=== PATIENT | male | born 1930 | race Caucasian/White ===

== ENCOUNTER 2018-10-12 18:50 | Inpatient (IN) ==
[2018-10-12 20:06] LABS: BASO# 0.02 X1000 (0.0-0.2); BASO% 0.2 % (0.0-0.8); EOS# 0.09 X1000 (0.0-0.7); HEMATOCRIT 38.8 % (42.0-52.0); HEMOGLOBIN 13.9 g/dL (14.0-18.0); IMM GRAN# 0.02 X1000 (0.0-0.04); IMM GRAN% 0.2 % (0.0-0.5); LYMPH# 1.61 X1000 (1.2-3.4); LYMPH% 18.4 % (20.5-51.1); MCH 32.3 PG (27-31); MCHC 35.8 g/dL (33-37); MONO# 0.97 X1000 (0.11-0.59); MONO% 11.1 % (1.7-9.3); MPV 9.4 FL (7.4-10.4); NEUT# 6.02 X1000 (1.4-6.5); NEUT% 69.1 % (42.2-75.2); PLT 305 X1000 (130-400); RBC 4.31 XMIL (4.7-6.1); RDW 12.5 % (11.5-14.5); WBC 8.73 X1000 (4.8-10.8)
--- NOTE | 2018-10-12 20:23 | Diag Imaging Result Doc PS360 ---
EXAM: CHEST-PORTABLE - 10/12/2018 HISTORY: "weakness" TECHNIQUE: Portable chest COMPARISON: 09/26/2018 chest two views FINDINGS: Heart size appears normal. There is mild tortuosity of the thoracic aorta. There is mild elevation of the right hemidiaphragm. The lungs appear clear. There is no pleural effusion or pneumothorax identified. IMPRESSION: Nonspecific mild elevation of right hemidiaphragm. No other evidence of acute disease. Electronically signed by Kale Zhao 10/12/2018 8:20 PM
[2018-10-12 21:05] LABS: ESTIMATED GFR > 60
[2018-10-12 21:10] LABS: AGAP 15; ALB/GLOB RATIO 1.4; ALBUMIN 3.9 g/dL (3.5-5.0); ALKALINE PHOSPHATASE 71 U/L (32-122); BUN 14 mg/dL (8-22); CHLORIDE 85 mmol/L (98-107); COSMO 254; CREATININE 0.9 mg/dL (0.7-1.2); GLUCOSE 95 mg/dL (70-104); GOT 22 U/L (10-34); GPT 11 U/L (10-44); POTASSIUM 3.2 mmol/L (3.5-5.1); SODIUM 126 mmol/L (136-145); TCO2 26 mmol/L (25-35); TOTAL BILIRUBIN 0.42 mg/dL (0.20-1.00); TOTAL PROTEIN 6.6 g/dL (6.3-8.3)
[2018-10-12] MEDS ORDERED: KLOR-CON PO ONE (21:31)
[2018-10-12] MEDS ORDERED: NS 1,000 ML IV ONE (22:31)
[2018-10-12 22:41] LABS: URINE SOURCE CLEAN CATCH
[2018-10-12 22:47] LABS: BILIRUBIN URINE NEGATIVE (NEGATIVE); BLOOD URINE NEGATIVE (NEGATIVE); COLOR YELLOW; GLUCOSE URINE NEGATIVE (NEGATIVE); KETONE URINE NEGATIVE (NEGATIVE); LEUKOCYTES URINE MODERATE (NEGATIVE); NITRITE URINE NEGATIVE (NEGATIVE); PH URINE 6.5; PROTEIN URINE TRACE mg/dL (NEGATIVE); SP GRAVITY URINE 1.013; TURBIDITY URINE CLEAR (CLEAR); UROBILINOGEN URINE 3 mg/dL (NORMAL)
[2018-10-12 22:49] LABS: UR EPITHELIAL CELLS <10 /HPF (<10); URINE BACTERIA 4+ /HPF; URINE RBC <10 /HPF (<10); URINE WBC TNTC /HPF (<10)
[2018-10-12 22:58] LABS: UR AMPHETAMINES QUAL NONE DETECTED (NONE DETECT); UR BARBITUATES QUAL NONE DETECTED (NONE DETECT); UR BENZODIAZEPIN QUAL NONE DETECTED (NONE DETECT); UR CANNABINOIDS QUAL NONE DETECTED (NONE DETECT); UR COCAINE QUAL NONE DETECTED (NONE DETECT); UR METHADONE QUAL NONE DETECTED (NONE DETECT); UR OPIATES QUAL NONE DETECTED (NONE DETECT); UR OXYCODONE QUAL NONE DETECTED (NONE DETECT); UR PCP QUAL NONE DETECTED (NONE DETECT)
[2018-10-12] MEDS ORDERED: ROCEPHIN 1 GM in NS 50 ML IV ONE (23:01)
--- NOTE | 2018-10-12 23:10 | PROVIDER DOCUMENTATION ---
This chart was entered by Jessica Samuels Scribe, acting as scribe for Awilda Chavez MD. HPI-General Adult - General Chief Complaint: Weakness Stated Complaint: WEAK, FEEL'S FAINT Time Seen by Provider: 10/12/18 19:12 Source: patient Allergies/Adverse Reactions: Patient Allergies Allergy/AdvReac Type Severity Reaction Status Date / Time No Known Allergies Allergy Verified 09/25/18 04:41 Home Medications: Home Medication List Medication Instructions Recorded Confirmed Last Taken Type Carvedilol Phosphate [Coreg Cr] 40 mg PO DAILY 03/30/12 09/25/18 05/09/15 History Ezetimibe [Zetia] 10 mg PO DAILY 03/30/12 05/10/15 05/09/15 History Fosinopril Sodium [Monopril] 40 mg PO BID 03/30/12 09/25/18 05/09/15 History Meclizine [Antivert] 12.5 mg PO 4XDAY #0 tablet 03/30/12 05/10/15 05/09/15 Rx Chlorpromazine [Thorazine] 25 mg PO TID PRN PRN #30 tablet 09/27/14 05/10/15 05/09/15 Rx Aspirin [Aspirin EC] 81 mg PO QAM 05/10/15 09/25/18 05/09/15 History Hydrochlorothiazide 1 tab PO DAILY 09/25/18 10/12/18 Unknown History Indapamide 1 tab PO DAILY 09/25/18 09/25/18 Unknown History Metformin E.r. [Glucophage Xr] 2 tab PO BID 09/25/18 09/26/18 Unknown History Omeprazole 1 cap PO DAILY 09/25/18 09/25/18 Unknown History Pioglitazone HCl 1 tab PO QAM 09/25/18 09/25/18 Unknown History Pravastatin Sodium 1 tab PO QPM 09/25/18 09/25/18 Unknown History Tamsulosin HCl [Flomax] 1 cap PO DAILY 09/25/18 09/25/18 Unknown History Amlodipine [Norvasc] 5 mg PO BID 09/26/18 09/26/18 Unknown History Atorvastatin Calcium [Lipitor] 80 mg PO QHS 09/26/18 09/26/18 Unknown History Furosemide [Lasix] 40 mg PO BID 09/26/18 09/26/18 Unknown History Glipizide [Glipizide Xl] 20 mg PO QAM 09/26/18 09/26/18 Unknown History Isosorbide Mononitrate [Isosorbide 60 mg PO DAILY 09/26/18 09/26/18 Unknown History Mononitrate ER] Methocarbamol [Robaxin] 500 mg PO Q6H PRN PRN 09/26/18 09/26/18 Unknown History Ondansetron HCl [Zofran] 4 mg PO Q8H PRN PRN 09/26/18 09/26/18 Unknown History Pantoprazole Sodium [Protonix] 40 mg PO QHS 09/26/18 09/26/18 Unknown History Pregabalin [Lyrica] 150 mg PO BID 09/26/18 09/26/18 Unknown History Trazodone [Desyrel] 50 mg PO QHS 09/26/18 09/26/18 Unknown History - History of Present Illness -Gen Adult Nature of Presenting Problems: 88yom presents to ED cc generalized weakness, especially with walking, that started this evening. Pt is a poor historian but does report he lives alone but does have a maid that cleans for him and daughters who help with shopping, etc. Pt denies N/V/D/F. Pt has hx of HTN, DM and seizure. Pt is non-toxic in appearance. Location of Pain/Injury: reports: generalized Pain Radiation: reports: no radiation Quality of Pain: reports: aching Severity: reports: mild Onset/Duration: reports: this evening Timing: reports: still present Context/Activities at Onset: reports: light activity Modifying Factors: worse with: movement Associated Symptoms: reports: weakness, trouble walking. denies: diarrhea, fever/chills, nausea, vomiting Review of Systems - Adult - REVIEW OF SYSTEMS - ADULT Constitutional: reports: see HPIbc. denies: chills, fever Eyes: reports: no symptoms reported Ears, Nose, Mouth & Throat: reports: no symptoms reported Cardiovascular: reports: no symptoms reported Respiratory: reports: no symptoms reported Gastrointestinal: reports: see HPI. denies: diarrhea, nausea, vomiting Genitourinary: reports: no symptoms reported Musculoskeletal: reports: no symptoms reported Integumentary: reports: no symptoms reported Neurological: reports: no symptoms reported Psychiatric: reports: no symptoms reported Endocrine: reports: no symptoms reported Hematologic/Lymphatic: reports: no symptoms reported Allergic/Immunologic: reports: no symptoms reported All Other Systems: Reviewed and Negative Past History - Adult - PAST MEDICAL HISTORY-ADULT Review of Records: reports: Nursing Assessment Review, Medications Reviewed, Social history reviewed & non-contributory. Major Childhood Illnesses: reports: denies history Cardiovascular: reports: denies history Respiratory: reports: denies history Gastrointestinal: reports: denies history Obstetrical/Gynecological: reports: denies history Genitourinary: reports: denies history Musculoskeletal: reports: denies history Neurological: reports: denies history Endocrine/Immune: reports: denies history Other Conditions: reports: denies history - IMMUNIZATION STATUS Childhood Immunizations: See Nurse Assessment Flu Vaccine: See Nurse Assessment - FAMILY HISTORY Family History: reviewed, not pertinent - SOCIAL HISTORY Smoking: denies Physical Exam-General - PHYSICAL EXAM-ADULT Initial Vital Signs Reviewed: Yes - CONSTITUTIONAL General Appearance: appears well, alert, no apparent distress. negative: anxious, combative - EYES Eyes: PERRL/EOMI, pink conjunctivae. negative: meningismus, photophobia - HEAD, EARS, NOSE, MOUTH & THROAT HENMT: moist mucous membranes, hearing deficit. negative: angioedema - NECK Neck: non-tender, full range of motion, supple, normal inspection. negative: Brudzinski's sign, carotid bruit, C-spine tenderness - RESPIRATORY Respiratory: chest non-tender, lungs clear, normal breath sounds, no pleuratic chest pain, no respiratory distress, no accessory muscle use. negative: crackles, rales, rhonchi, stridor, wheezing - CARDIOVASCULAR Cardiovascular: normal peripheral pulses, regular rate, rhythm, no edema, no gallop, no JVD, no murmur. negative: bradycardia, tachycardia - GASTROINTESTINAL (ABDOMEN) Abdominal Exam: normal bowel sounds, non tender, soft. negative: rigid, rebound, tenderness - LYMPHATIC Lymphatic: no adenopathy. negative: striations - MUSCULOSKELETAL Back Exam: normal inspection, no CVA tenderness, no vertebral tenderness. negative: swelling Extremity: normal range of motion, non-tender, normal inspection, no pedal edema , no calf tenderness, normal capillary refill. negative: deformity, erythema - SKIN Integumentary: normal color, normal turgor, warm/dry. negative: diaphoresis, erythema, jaundice - PSYCHIATRIC Psych/Mental Status: normal mood/affect. negative: anxious, disheveled Progress - PLAN OF CARE/RESULTS Progress/Plan/Lab Results: Vital Signs - 8 hr 10/12/18 18:55 Temperature 98.1 F Pulse Rate 97 H Respiratory Rate 18 Blood Pressure 126/79 O2 Sat by Pulse Oximetry 98 Laboratory Results - last 24 hr 10/12/18 10/12/18 19:01 19:20 WBC 8.73 RBC 4.31 L Hgb 13.9 L Hct 38.8 L MCV 90.0 MCH 32.3 H MCHC 35.8 RDW Std Deviation 12.5 Plt Count 305 MPV 9.4 Immature Gran % (Auto) 0.2 Neut % (Auto) 69.1 Lymph % (Auto) 18.4 L [place] % (Auto) 11.1 H Eos % (Auto) 1.0 Baso % (Auto) 0.2 Immature Gran # (Auto) 0.02 Neut # (Auto) 6.02 Lymph # (Auto) 1.61 [place] # (Auto) 0.97 H Eos # (Auto) 0.09 Baso # (Auto) 0.02 POC Glucose 108 H Orders Category Date Time Status CHEST-PORTABLE [RAD] Stat Exams 10/12/18 19:53 Taken CBC WITH ELECTRONIC DIFF [HEME] Stat Lab 10/12/18 19:20 Completed COMPREHENSIVE METABOLIC PANEL [CHEM] Stat Lab 10/12/18 19:20 Received FREE T4 Stat Lab 10/12/18 19:20 Received TROPONIN T Stat Lab 10/12/18 19:20 Received TSH Stat Lab 10/12/18 19:20 Received URINALYSIS W/POSS RFLX CULT [URINALYSIS] Stat Lab 10/12/18 19:50 Uncollected URINE DRUG SCREEN Stat Lab 10/12/18 19:50 Uncollected Daughter arrived at ED at 2150 and reports pt was at her house today, celebrating Father's Day, and he seemed fine before returning to his home but maybe just a little bit more tired. Daughter does report pt is scheduled to have an EEG and Chest CT on and thinks it is for his worsening memory. She states that prior to recently he has done very well on his own and just recently her sisters and her have been discussing what the next step is. Patient with UTI and chronic hyponatremia although this is lower than it normally is in the past. Given the daughter's concern about him being a little bit more weak, living alone, having more mental issues, awill admit for UTI and PT eval for possible home health vs inpatient rehab. Spoke to Dr Noble who accepted patient for admission. Further orders to be placed by hospitalist team. Result Diagrams: 10/12/18 19:20 10/12/18 19:20 - EKG 1 Time of EKG reading by physician:: 21:15 EKG Read and Signed by:: Awilda Chavez EKG Interpretation (*Must complete 3 of following elements*): Abnormal (possible left atrial enlargement) Rate: 92 Rhythm: normal sinus QRS: RBB Prior EKG Comparison: unchanged from prior - XRAY 1 XRAY: Bilateral XRAY Study: Chest Impression: See EMR Report (IMPRESSION: Nonspecific mild elevation of right hemidiaphragm. No other evidence of acute disease. Electronically signed by Kale Zhao 10/12/2018 8:20 PM) - CONSULTS/PCP/HOSPITALIST Notification #1 *Consult/PCP/Hospitalist*: Dr Noble Time Discussed: 23:14 Consult Disposition: Admit Departure - Departure Date of Disposition Decision: 10/12/18 Time of Disposition Decision: 23:14 DIAGNOSIS: UTI (urinary tract infection), Weakness, Chronic hyponatremia, Hypokalemia Disposition: ADMITTED INPATIENT 09 Certified Medical Emergency: Emergent Condition: Stable Referrals and Follow-Ups: Abiodun Mccormack Jr, MD [Primary Care Provider] - - Critical Care Note This patient required my direct & personal management of CC.: No Attestation - Physician/ SHARON Attestation Patient care was provided by Advanced Practice Provider:: No The physician spent face to face time with patient:: Yes Advanced Practice Provider documentation review:: Supervising physician onsite and consulted in the evaluation and care of this patient. The physician did have a face to face encounter with the patient. This chart was documented by the indicated scribe, (Jessica Samuels Scribe) and accurately reflects the services I performed and decisions made by me, Awilda Chavez MD, as attested by the provider's signature.
--- NOTE | 2018-10-13 00:56 | HISTORY AND PHYSICAL ---
PRIMARY CARE PHYSICIAN: Dr. Abiodun Mccormack. CHIEF COMPLAINT: Progressive general weakness, UTI. HISTORY OF PRESENT ILLNESS: This is a chronically ill-appearing 88-year-old male, past medical history of diabetes, hypertension, hyperlipidemia, who presented to the emergency department complaining of general weakness. The patient is a poor historian. Daughter is at bedside. She reports that the patient has been complaining of general weakness and fatigue for the last weeks that has been going on and off. Today, she was visiting him and she noted that her father was not feeling good. The patient reports feeling dizzy and feeling weak so he decided to drive to the hospital by himself, not telling anybody about it. Here, upon ER evaluation his labs are pretty unremarkable except sodium of 136 that according to daughter sodium tends to run low on him and also mild hypokalemia. Patient is on furosemide according to the home medication list. Also, the urine exam showed UTI. So, considering general weakness and UTI the patient is being admitted to the hospital for further evaluation and treatment. PAST MEDICAL HISTORY: 1. Diabetes mellitus type 2. 2. Hypertension. 3. Hyperlipidemia. PAST SURGICAL HISTORY: None. Patient reports having had a seizure a month ago and is supposed to have an EEG and Neurology consult in September. ALLERGIES: No known drug allergies. SOCIAL HISTORY: Patient lives alone. The patient usually drinks a shot of bourbon almost every single day. The patient does not smoke. He quit smoking in 1984 and 1997. He used to smoke approximately 1 pack per day since his 20s. He denies using any illicit drugs. REVIEW OF SYSTEMS: Review of systems was reviewed and all symptoms are related to H and P. PHYSICAL EXAMINATION: VITALS: Temperature 98.1 degrees, heart rate 97, respiratory rate 18, blood pressure 136/79, O2 saturation 98% on room air. GENERAL: This is a chronically ill-appearing 88-year-old male lying in bed in no acute distress. HEENT: Head is normocephalic, atraumatic. Mucous membranes dry. Pupils equal, round, reactive to light and accommodation. NECK: No JVD noted. No carotid bruits. No lymphadenopathy. No thyromegaly. CARDIOVASCULAR: S1, S2 heard. No murmurs, gallops, or rubs. Regular rate and rhythm. RESPIRATORY: Clear bilaterally to auscultation. No work of breathing or using accessory muscles. ABDOMEN: Soft. Nontender to palpation. Bowel sounds present. No organomegaly. EXTREMITIES: No clubbing, cyanosis, or edema. Peripheral pulses present in both legs. NEUROLOGICAL: The patient is alert and oriented x3. Moves 4 extremities. LABORATORY DATA: Reviewed and urinalysis shows UTI. ASSESSMENT AND PLAN: 1. Generalized weakness/dizziness/urinary tract infection. That is reason why this patient is going to be admitted to the hospital. Also, he has received in the ER ceftriaxone 1 g so we will continue with that medication until final result of blood cultures, urine culture are available. We will provide IV fluids slowly at 75 mL per hour. We will continue to monitor this patient closely. He may need to go to rehab at the end of his hospitalization. 2. Diabetes mellitus type 2. I prefer to manage this patient with insulin sliding scale Humalog and stop oral antidiabetic agents. Will check HbA1c 3. Hyperlipidemia. We will continue home medications. 4. Hypertension. We will resume some of his blood pressure medications because blood pressure is between 127 and 130s at this time. We will continue to monitor this patient closely. 5. History of seizure. We will order an EEG on this patient and we will monitor this patient closely. Will leave the decision of consulting Neurology to his primary care doctor. Dr. Mccormack will see this patient in the morning. cc: MD Abiodun Irwin Jr, MD MTDD
[2018-10-13] MEDS ORDERED: NS 1,000 ML IV SCH (01:03)
[2018-10-13] MEDS ORDERED: ZOFRAN IV PRN (01:03)
[2018-10-13 01:31] LABS: HEMOGLOBIN A1C 5.3 % (4.8-6.0)
[2018-10-13] MEDS: LOVENOX SUBQ SCH ×2 (02:42→23:16)
[2018-10-13] MEDS: ROCEPHIN 1 GM in NS 50 ML IV SCH ×2 (02:43→23:16)
[2018-10-13 06:39] LABS: BASO# 0.02 X1000 (0.0-0.2); BASO% 0.3 % (0.0-0.8); EOS# 0.04 X1000 (0.0-0.7); EOS% 0.6 % (0.0-10.0); HEMATOCRIT 37.5 % (42.0-52.0); HEMOGLOBIN 13.3 g/dL (14.0-18.0); IMM GRAN# 0.02 X1000 (0.0-0.04); IMM GRAN% 0.3 % (0.0-0.5); LYMPH# 1.54 X1000 (1.2-3.4); LYMPH% 22.7 % (20.5-51.1); MCH 32.4 PG (27-31); MCHC 35.5 g/dL (33-37); MCV 91.2 FL (81-99); MONO% 10.3 % (1.7-9.3); MPV 9.4 FL (7.4-10.4); NEUT# 4.45 X1000 (1.4-6.5); NEUT% 65.8 % (42.2-75.2); PLT 294 X1000 (130-400); RBC 4.11 XMIL (4.7-6.1); RDW 12.6 % (11.5-14.5); WBC 6.77 X1000 (4.8-10.8)
[2018-10-13 07:09] LABS: ESTIMATED GFR > 60
[2018-10-13 07:21] LABS: AGAP 11; BUN 12 mg/dL (8-22); CALCIUM 8.3 mg/dL (8.8-10.2); CHLORIDE 89 mmol/L (98-107); COSMO 253; CREATININE 0.9 mg/dL (0.7-1.2); GLUCOSE 92 mg/dL (70-104); POTASSIUM 3.2 mmol/L (3.5-5.1); SODIUM 126 mmol/L (136-145); TCO2 26 mmol/L (25-35)
[2018-10-13] MEDS: HUMALOG SUBQ SCH ×4 (07:35→23:18)
--- NOTE | 2018-10-13 08:06 | EKG Report ---
Test Performed on : 10/12/2018 7:15:34 PM Test Reason : ED. NO EKG ORDER FOR MUSE Blood Pressure : / mmHG Vent. Rate : 092 BPM Atrial Rate : 092 BPM P-R Int : 222 ms QRS Dur : 146 ms QT Int : 390 ms P-R-T Axes : 040 -62 011 degrees QTc Int : 482 ms Sinus rhythm. with 1st degree AV block. with premature atrial complexes. Possible Left atrial enlargement Left axis deviation Right bundle branch block Abnormal ECG When compared with ECG of 25-SEP-2018 05:13, (Unconfirmed) No significant change was found Unconfirmed Result
[2018-10-13] MEDS: LYRICA PO SCH ×2 (08:25→23:22)
[2018-10-13] MEDS: COREG CR PO SCH (08:25)
[2018-10-13] MEDS: ASPIRIN EC PO SCH (08:25)
[2018-10-13] MEDS: ZETIA PO SCH (08:25)
[2018-10-13] MEDS: FLOMAX PO SCH (08:25)
[2018-10-13] MEDS: NORVASC PO SCH ×2 (08:25→23:15)
[2018-10-13] MEDS: KLOR-CON PO SCH ×2 (08:32→23:14)
[2018-10-13] MEDS: HYDROCHLOROTHIAZIDE PO SCH (08:32)
--- NOTE | 2018-10-13 10:56 | PROGRESS NOTE ---
DATE: 10/13/2018 SUBJECTIVE: The patient came in the hospital with generalized weakness and UTI. He has diabetes, hypertension, and hyperlipidemia, probably also alcoholism though he says he has not had a drink in the last couple of weeks. His sodium and potassium were low and appears to have a UTI. He does have diabetes and hyperlipidemia. He had listed on his home medicines Lipitor and pravastatin, but I believe that we only had him on pravastatin some stopping Lipitor and to continue with the pravastatin. He had several medicines that I was not really familiar with him taking including for his heart including Lasix and Imdur. I will have to check on these, but I do not think that he was on these medications. I asked him if he was seeing another physician, and he said no. If he was on Lasix and on indapamide that could account for his potassium being low at 3.2, and his sodium low at 126. His urine culture is pending. OBJECTIVE: Blood pressure 139/69, respirations 15, pulse 68, and temperature 98 degrees Fahrenheit.HEENT: Normocephalic. EOM's intact. PERRLA. Throat clear. Lungs: Clear to auscultation and percussion without rhonchi, rales, or wheezes. Heart: Regular rate and rhythm without murmurs, gallops, or friction rubs. Abdomen: Soft. Active bowel sounds. No organomegaly or tenderness. Neurological: Cranial nerves 2-12 intact grossly. Sensory and motor intact. Reflexes 1+ all. ASSESSMENT: 1. Urinary tract infection. 2. Generalized weakness. 3. Hypokalemia. 4. Hyponatremia. 5. Diabetes mellitus. 6. Hypertension. 7. Hyperlipidemia. PLAN: Continue to support. We will cut back on his IV fluids. We will replace his potassium. We will investigate his other medications. cc: Abiodun Mccormack Jr, MD
[2018-10-13] MEDS ORDERED: LIPITOR PO SCH (21:00)
[2018-10-13] MEDS: PRILOSEC PO SCH (23:15)
[2018-10-13] MEDS: PRAVACHOL PO SCH (23:15)
[2018-10-13] MEDS: DESYREL PO SCH (23:15)
[2018-10-14 06:02] LABS: BASO# 0.03 X1000 (0.0-0.2); BASO% 0.5 % (0.0-0.8); EOS# 0.17 X1000 (0.0-0.7); EOS% 2.7 % (0.0-10.0); HEMATOCRIT 34.3 % (42.0-52.0); HEMOGLOBIN 12.1 g/dL (14.0-18.0); LYMPH# 1.63 X1000 (1.2-3.4); MCH 32.4 PG (27-31); MCHC 35.3 g/dL (33-37); MCV 91.7 FL (81-99); MONO# 0.71 X1000 (0.11-0.59); MONO% 11.3 % (1.7-9.3); MPV 9.2 FL (7.4-10.4); NEUT# 3.74 X1000 (1.4-6.5); NEUT% 59.5 % (42.2-75.2); PLT 260 X1000 (130-400); RBC 3.74 XMIL (4.7-6.1); RDW 12.5 % (11.5-14.5); WBC 6.28 X1000 (4.8-10.8)
[2018-10-14] MEDS: ROCEPHIN 1 GM in NS 50 ML IV SCH ×3 (06:10→21:16)
[2018-10-14] MEDS: LOVENOX SUBQ SCH (06:11)
[2018-10-14 06:34] LABS: AGAP 10; BUN 15 mg/dL (8-22); CALCIUM 8.4 mg/dL (8.8-10.2); CHLORIDE 91 mmol/L (98-107); COSMO 258; CREATININE 0.9 mg/dL (0.7-1.2); ESTIMATED GFR > 60; GLUCOSE 94 mg/dL (70-104); POTASSIUM 3.7 mmol/L (3.5-5.1); SODIUM 128 mmol/L (136-145); TCO2 27 mmol/L (25-35)
[2018-10-14] MEDS: HUMALOG SUBQ SCH ×4 (07:56→21:17)
[2018-10-14] MEDS: ASPIRIN EC PO SCH (09:27)
[2018-10-14] MEDS: LYRICA PO SCH (09:27)
[2018-10-14] MEDS: NORVASC PO SCH ×2 (09:27→21:16)
[2018-10-14] MEDS: ZETIA PO SCH (09:27)
[2018-10-14] MEDS: KLOR-CON PO SCH ×2 (09:27→21:16)
[2018-10-14] MEDS: HYDROCHLOROTHIAZIDE PO SCH (09:27)
[2018-10-14] MEDS: COREG CR PO SCH (09:28)
[2018-10-14] MEDS: FLOMAX PO SCH (09:28)
[2018-10-14 16:41] LABS: URINE SOURCE CATH
[2018-10-14 16:44] LABS: BILIRUBIN URINE NEGATIVE (NEGATIVE); BLOOD URINE NEGATIVE (NEGATIVE); COLOR YELLOW; GLUCOSE URINE NEGATIVE (NEGATIVE); KETONE URINE NEGATIVE (NEGATIVE); LEUKOCYTES URINE NEGATIVE (NEGATIVE); NITRITE URINE NEGATIVE (NEGATIVE); PH URINE 6.5; PROTEIN URINE NEGATIVE (NEGATIVE); SP GRAVITY URINE 1.008; TURBIDITY URINE CLEAR (CLEAR); UROBILINOGEN URINE NORMAL (NORMAL)
[2018-10-14 16:46] LABS: UR EPITHELIAL CELLS <10 /HPF (<10); URINE BACTERIA NEGATIVE /HPF; URINE RBC <10 /HPF (<10); URINE WBC <10 /HPF (<10)
[2018-10-14] MEDS: DESYREL PO SCH (21:16)
[2018-10-14] MEDS: PRILOSEC PO SCH (21:16)
[2018-10-14] MEDS: PRAVACHOL PO SCH (21:16)
[2018-10-15] MEDS: LYRICA PO SCH ×2 (00:21→09:14)
[2018-10-15 06:38] LABS: BASO# 0.03 X1000 (0.0-0.2); BASO% 0.4 % (0.0-0.8); EOS# 0.22 X1000 (0.0-0.7); EOS% 2.9 % (0.0-10.0); HEMATOCRIT 38.3 % (42.0-52.0); HEMOGLOBIN 13.3 g/dL (14.0-18.0); IMM GRAN# 0.03 X1000 (0.0-0.04); IMM GRAN% 0.4 % (0.0-0.5); LYMPH# 1.86 X1000 (1.2-3.4); LYMPH% 24.6 % (20.5-51.1); MCH 32.2 PG (27-31); MCHC 34.7 g/dL (33-37); MCV 92.7 FL (81-99); MONO# 0.71 X1000 (0.11-0.59); MONO% 9.4 % (1.7-9.3); MPV 9.8 FL (7.4-10.4); NEUT# 4.72 X1000 (1.4-6.5); NEUT% 62.3 % (42.2-75.2); PLT 300 X1000 (130-400); RBC 4.13 XMIL (4.7-6.1); RDW 12.7 % (11.5-14.5); WBC 7.57 X1000 (4.8-10.8)
[2018-10-15 07:19] LABS: AGAP 6; BUN 15 mg/dL (8-22); CALCIUM 9.1 mg/dL (8.8-10.2); CHLORIDE 92 mmol/L (98-107); COSMO 258; CREATININE 0.9 mg/dL (0.7-1.2); ESTIMATED GFR > 60; GLUCOSE 92 mg/dL (70-104); POTASSIUM 4.2 mmol/L (3.5-5.1); SODIUM 128 mmol/L (136-145); TCO2 30 mmol/L (25-35)
[2018-10-15 07:54] VITALS: BP 130/70
[2018-10-15] MEDS: ROCEPHIN 1 GM in NS 50 ML IV SCH (09:13)
[2018-10-15] MEDS: LOVENOX SUBQ SCH (09:13)
[2018-10-15] MEDS: KLOR-CON PO SCH (09:14)
[2018-10-15] MEDS: ASPIRIN EC PO SCH (09:14)
[2018-10-15] MEDS: FLOMAX PO SCH (09:14)
[2018-10-15] MEDS: HYDROCHLOROTHIAZIDE PO SCH (09:14)
[2018-10-15] MEDS: COREG CR PO SCH (09:14)
[2018-10-15] MEDS: NORVASC PO SCH (09:14)
[2018-10-15] MEDS: ZETIA PO SCH (09:14)
--- NOTE | 2018-10-15 12:26 | EEG REPORT ---
DATE: 10/13/2018 COMMENT: This is a digitally recorded EEG on an 88-year-old patient with reported recent seizure episode. FINDINGS: During waking, low to medium amplitude, poorly sustained 7 Hz posterior rhythm is present bilaterally with uncertain reactivity to eye opening. Background contains polymorphic and rhythmic theta with occasional slowing into the delta range frontally. [place] was recorded with appearance of more generalized slowing and attenuation of the posterior rhythm. Stage 2 sleep was not recorded. Photic stimulation did not significantly alter the record. No definite epileptiform discharge was identified. INTERPRETATION: Abnormal electroencephalogram because of generalized slowing. CORRELATION: This is indicative of a diffuse encephalopathy and is nonspecific. The absence of epileptiform discharges on a single EEG does not exclude a clinical diagnosis of seizures, but there is nothing on this record to prove the presence of a seizure disorder. cc: MD Rios Cox III, MD Roger H. Moss Jr, MD
--- NOTE | 2018-10-15 21:02 | ECHO REPORT ---
ORDER DATE: 10/13/2018 INDICATION: Fatigue, weakness, CHF suspected. M-MODE MEASUREMENTS: Left ventricle end diastole: 4.1. Left ventricle end systole: 2.5. Posterior wall: 1.1. Interventricular septum: 1.1. Left atrium: 3.6. Aortic diameter: 4.2. SUMMARY OF 2-DIMENSIONAL IMAGIN. Left ventricular function is normal. Ejection fraction is estimated at 55% to 60% or better. 2. Optison was added to optimize visualization of the endocardium. 3. The aortic valve has some sclerosis. There is no stenosis. Color flow mapping indicates trace regurgitation. 4. The pulmonic valve also shows trace regurgitation. 5. The mitral valve looks grossly normal. Color flow mapping unremarkable. 6. Pulsed wave Doppler of mitral inflow shows reversal of the E/A ratio. The ratio is 0.6. 7. Tissue Doppler of septal and lateral mitral annulus averages 7 cm. 8. There is no diastolic dysfunction. 9. The tricuspid valve shows a mild degree of regurgitation. 10.The inferior vena cava is enlarged. Pulmonary pressure is estimated at 32 to 37 mmHg. 11.There is no pericardial effusion. No mass. No thrombus. Clinical correlation recommended. cc: MD Rios Salazar MD Roger H. Moss Jr, MD
--- NOTE | 2018-10-16 11:03 | PROGRESS NOTE ---
DATE: 10/14/2018 SUBJECTIVE: The patient says he is feeling better. He is feeling stronger. He worked with physical therapy and got up and walked yesterday. OBJECTIVE: Blood pressure is 129/71, respirations 20, pulse 58, temperature 97.6 degrees Fahrenheit. HEENT: He is normocephalic. EOMs intact. PERRLA. Throat clear. Lungs: Clear to auscultation and percussion without rhonchi, rales, or wheezes. Heart: Regular rate and rhythm without murmurs, gallops, or friction rubs. Abdomen: Soft. Active bowel sounds. No organomegaly or tenderness. Neurological: Examination intact grossly. Laboratory: Shows white count of 6280, hemoglobin 12.1, hematocrit 34.3. Potassium is better at 3.7. Sodium is a little better at 128 with fluid restriction. Urine culture showed mixed jenise, though he had a TNTC white blood cells, initially with 4+ bacteria. I think we should continue to treat him as an infection. We will repeat a urinalysis today. ASSESSMENT: 1. Generalized weakness. 2. Urinary tract infection. 3. Hyponatremia. 4. Hypokalemia. PLAN: We will repeat a urinalysis today. If stable, possibly home in the morning. cc: Abiodun Mccormack Jr, MD
== END 2018-10-15 10:04 | disposition home or self-care (01) | DRG 690 ==
LOC: ED 18:50 → 4N 23:59 → SUATTDRO 23:59 → 4N 10-13 00:10
PROVIDERS: ADMIT Emergency Medicine; ATTEND Emergency Medicine
CPT/HCPCS: 71010; 71045; 80048; 80053; 80101; 80301; 80307; 80324; 80345; 80346; 80353; 80358; 80361; 80365; 81001; 82948; 83036; 83992; 84439; 84443; 84484; 85025; 87088; 93005; 93306; 95816; 96360; 97116; 97162; 97530; 99285; A9270; C8929; G0431; G0434; G0479; G0480; J0696; J1650; J7030; Q9957; XXXXX